=== PATIENT | male | born 1990 | race African-American/Black ===

== ENCOUNTER 2024-11-28 14:19 | Emergency (ER) | payer BC, MEDICAID ==
[2024-11-28] MEDS: ONDANSETRON HCL 4MG/2ML INJ IV ONE (14:36)
[2024-11-28] MEDS: FENTANYL CITRATE/PF 50MCG/ML 2ML VIAL IV STA (14:36)
[2024-11-28] MEDS: CEFAZOLIN 1000MG PREMIX 50 ML IV ONE (14:45)
[2024-11-28 14:58] LABS: BASOPHILS % 0.7 % (0.0-2.0); EOSINOPHILS % 1.1 % (0.0-5.0); HEMATOCRIT. 39.3 % (42.0-52.0); HEMOGLOBIN. 12.1 g/dL (14.0-18.0); LYMPHOCYTES % 49.9 % (20.0-50.0); MEAN PLATELET VOLUME 7.6 fl (7.4-10.4); MONOCYTES % 7.6 % (2.0-8.0); NEUTROPHILS % 40.7 % (40.0-76.0); PLATELET 238 x1000/uL (130-400); RED BLOOD CELL COUNT 4.55 mill/uL (4.7-6.1); RED CELL DISTRIBUTION WIDTH 18.0 % (11.6-14.6)
[2024-11-28 15:11] LABS: CREATININE 1.5 mg/dL (0.6-1.3); ETHANOL BLOOD 27 mg/dL (<10); UREA NITROGEN BLOOD 13 mg/dL (9-23)
[2024-11-28 15:12] LABS: ASPARTATE AMINOTRANSFERASE 30 IU/L (<34)
[2024-11-28 15:13] LABS: BILIRUBIN DIRECT 0.2 mg/dL (<=3.0); BILIRUBIN TOTAL 0.5 mg/dL (0.1-1.0); PROTEIN TOTAL 7.7 g/dL (6.0-8.3)
[2024-11-28] MEDS ORDERED: OXYC-105 MT (15:35)
[2024-11-28] MEDS: SODIUM CHLORIDE 0.9% 1,000 ML IV ONE (15:40)
[2024-11-28] MEDS: TETANUS, DIPHTHERIA, PERTUSSIS VAC/PF 0.5ML (>10YR OLD) IM ONE (15:45)
[2024-11-28] MEDS: OXYCODONE HCL/ACETAMINOPHEN 5/325MG TABLET PO ONE (15:47)
[2024-11-28 16:04] LABS: INR 1.1
[2024-11-28 16:38] VITALS: BP 113/62; PULSE 87; RESP 16; TEMP 36.5; O2SAT 100
== END 2024-11-28 16:56 | disposition home or self-care (01) ==
LOC: ER 14:19 → CMPBEDREQ 17:33
DX: S82.831A Other fracture of upper and lower end of right fibula, initial encounter for closed fracture (principal); F12.90 Cannabis use, unspecified, uncomplicated; W34.09XA Accidental discharge from other specified firearms, initial encounter; Y93.89 Activity, other specified; Y92.89 Other specified places as the place of occurrence of the external cause; Y99.8 Other external cause status
CPT/HCPCS: 80076; 80048; 80320; 85025; 85610; 85730; 86850; 86900; 86901; 36415; 73590; 90715; 29505; 90471; 96361; 96365; 96375; 99285; J3010; J0690; J2405; J7030; Z7610 ×3; A6449; G0480